=== PATIENT | female | born 1970 | race Caucasian/White ===

== ENCOUNTER 2022-05-03 07:40 | Emergency (ER) | payer OTHER ==
[2022-05-03] MEDS ORDERED: Sodium Chloride 0.9% 10 ML Syringe FLUSH PRN (08:05)
[2022-05-03] MEDS ORDERED: LORazepam 2 MG/ML SDV IVPUSH ONE (08:06)
[2022-05-03] MEDS ORDERED: Metoclopramide 10 MG/2 ML SDV IVPUSH ONE (08:06)
== END 2022-05-03 11:05 | disposition home or self-care (01) ==
LOC: JD.ED 07:40
DX: G40.909 Epilepsy, unspecified, not intractable, without status epilepticus (principal); Z79.899 Other long term (current) drug therapy
CPT/HCPCS: 36415; 80053; 83735; 85025; 96374; 96375; 99284; J2060; J2765; J3490; 99283